=== PATIENT | male | born 1985 | race Caucasian/White ===

== ENCOUNTER 2017-12-21 15:19 | Outpatient (CLI) | payer OTHER | END 2017-12-21 15:20 | disposition home or self-care (01) | LOC: SC 15:19 | PROVIDERS: ATTEND Internal Medicine Pulmonary Disease | DX: G47.30 Sleep apnea, unspecified (principal); G47.10 Hypersomnia, unspecified; R06.83 Snoring; G47.8 Other sleep disorders | CPT/HCPCS: 99203; 99212 ==

== ENCOUNTER 2018-01-28 08:37 | Emergency (ER) | payer OTHER ==
[2018-01-28 09:05] LABS: BASOPHILS % (AUTO) 0.1 %; EOSINOPHILS % (AUTO) 0.1 %; HGB - HEMOGLOBIN 15.4 g/dL (14.0-18.0); LYMPHOCYTES # (AUTO) 0.3 10^3/uL (1.5-3.5); LYMPHOCYTES % (AUTO) 1.5 %; MEAN CORPUSCULAR HEMOGLOBIN 30.7 pg (27.0-31.0); MEAN CORPUSCULAR HGB CONC 34.7 g/dL (32.0-36.0); MEAN CORPUSCULAR VOLUME 88.5 fL (80.0-94.0); MEAN PLATELET VOLUME 9.6 fL (7.4-11.4); MONOCYTES # (AUTO) 0.4 10^3/uL (0.0-1.0); MONOCYTES % (AUTO) 2.1 %; NEUTROPHILS # (AUTO) 17.4 10^3/uL (1.5-6.6); NEUTROPHILS % (AUTO) 96.2 %; PLT - PLATELET COUNT 211 10^3/uL (130-450); RED BLOOD COUNT 5.02 10^6/uL (4.70-6.10); RED CELL DISTRIBUTION WIDTH 12.2 % (12.0-15.0); WHITE BLOOD COUNT 18.1 x10^3/uL (4.8-10.8)
[2018-01-28] MEDS ORDERED: SODIUM CHLORIDE 0.9% 2,000 ML IV ONE (09:13)
--- NOTE | 2018-01-28 09:13 | ED Physician Documentation ---
History of Present Illness - Stated complaint Stated Complaint: N/V/D AB PX - Chief complaint Chief Complaint: Abd Pain - Additonal information Additional information: hx from pt 32 m AD [place] to ED with NVD dehydration no urine for 12 hr periumbilical pain with same they think due to baby [place] they ate no travel no blood in vomit or stool Review of Systems Constitutional: denies: Fever, Chills Cardiac: denies: Chest pain / pressure Respiratory: denies: Dyspnea GI: reports: Abdominal Pain, Nausea, Vomiting, Diarrhea. denies: Hematemesis, Bloody / black stool : reports: Other (decreased output) Neurologic: reports: Generalized weakness Endocrine: denies: Easy bruising / bleeding Immunocompromised: denies: Immunocompromised PD PAST MEDICAL HISTORY - Past Surgical History Past Surgical History: No - Present Medications Home Medications: Ambulatory Orders Medication Instructions Recorded Confirmed Azithromycin [Zithromax] 500 mg PO DAILY #4 tablet 01/28/18 Promethazine [Phenergan] 25 mg PO Q6H PRN #10 tablet 01/28/18 - Allergies Allergies/Adverse Reactions: Allergies Allergy/AdvReac Type Severity Reaction Status Date / Time No Known Drug Allergies Allergy Verified 01/28/18 08:47 - Social History Does the pt smoke?: No Smoking Status: Never smoker Does the pt drink ETOH?: Yes Does the pt have substance abuse?: No - Immunizations Immunizations are current?: Yes PD ED PE NORMAL - Vitals Vital signs reviewed: Yes - Neck Neck: Supple, no meningeal sign - Cardiac Cardiac: RRR - Respiratory Respiratory: No respiratory distress, Clear bilaterally - Abdomen Abdomen: Other (soft , TTP mid abd s rebound gaurding or palp hernia, no focal RUQ RLQ pain) - Derm Derm: Normal color - Neuro Neuro: Alert and oriented X 3 Results - Vitals Vitals: Vital Signs - 24 hr 01/28/18 01/28/18 01/28/18 08:45 12:55 14:04 Temperature 37.4 C 38.6 C H 38.2 C H Heart Rate 91 114 H 100 Respiratory 18 22 16 Rate Blood Pressure 114/65 112/61 112/63 O2 Saturation 96 98 96 Oxygen O2 Source Room air - Labs Labs: Laboratory Tests 01/28/18 01/28/18 01/28/18 08:55 08:55 10:15 WBC 18.1 H RBC 5.02 Hgb 15.4 Hct 44.5 MCV 88.5 MCH 30.7 MCHC 34.7 RDW 12.2 Plt Count 211 MPV 9.6 Neut # (Auto) 17.4 H Lymph # (Auto) 0.3 L Jenkins # (Auto) 0.4 Eos # (Auto) 0.0 Baso # (Auto) 0.0 Absolute Nucleated RBC 0.00 Nucleated RBC % 0.0 Sodium 138 Potassium 3.9 Chloride 102 Carbon Dioxide 26 Anion Gap 10.0 BUN 20 Creatinine 0.8 Estimated GFR (MDRD) 114 Glucose 123 H Calcium 9.5 Total Bilirubin 1.6 H AST 24 ALT 23 Alkaline Phosphatase 66 Total Protein 8.2 Albumin 4.8 Globulin 3.4 Albumin/Globulin Ratio 1.4 Lipase 30 Urine Color YELLOW Urine Clarity CLEAR Urine pH 6.0 Ur Specific [place] 1.025 Urine Protein NEGATIVE Urine Glucose (UA) NEGATIVE Urine Ketones 40 H Urine Occult Blood NEGATIVE Urine Nitrite NEGATIVE Urine Bilirubin NEGATIVE Urine Urobilinogen 0.2 (NORMAL) Ur Leukocyte Esterase NEGATIVE Ur Microscopic Review NOT INDICATED Urine Culture Comments NOT INDICATED - Rads (name of study) abd sono Radiology: See rad report (GB sono) PD MEDICAL DECISION MAKING - ED course ED course: bili elev so got ruq sono which was neg he got 2 L of IVF, felt better, urinated, no further diarrhea, sent home with cup to collect if diarrhea returns but when nurse went to do dc vitals she found the pt was febrile and tachy so cancelled dc, ordered another L NS, tylenol, will continue to try for stool cx able to give stool sample despite tylenol and 3rd L of IVF HR 100 temp 38.2 given severtiy of sx and occuring after eating spinach concern for food poisoning now that have stool to cx and since it is not bloody so unlikely to be invasive E Coli, will start ab - zmax 500 PO QD X 3 days - will necessitate changing zofran to phenergan pt feeling much better - no more vomiting, tolerated PO, no abd pain, only one small diarrhea - Sepsis Event Vital Signs: Vital Signs - 24 hr 01/28/18 01/28/18 01/28/18 08:45 12:55 14:04 Temperature 37.4 C 38.6 C H 38.2 C H Heart Rate 91 114 H 100 Respiratory 18 22 16 Rate Blood Pressure 114/65 112/61 112/63 O2 Saturation 96 98 96 Oxygen O2 Source Room air Departure - Departure Disposition: 01 Home, Self Care Clinical Impression: Dehydration Vomiting Qualifiers: Vomiting type: unspecified Vomiting Intractability: non-intractable Nausea presence: with nausea Qualified Code(s): R11.2 - Nausea with vomiting, unspecified Diarrhea Qualifiers: Diarrhea type: unspecified type Qualified Code(s): R19.7 - Diarrhea, unspecified Condition: Good Instructions: ED Dehydration, ED Diet Vomiting Diarrhea, ED Gastroenteritis Vs Food Poison Follow-Up: [facility] [Provider Group] (tomorrow for a recheck) Prescriptions: Azithromycin [Zithromax] 500 mg PO DAILY #4 tablet Promethazine [Phenergan] 25 mg PO Q6H PRN #10 tablet PRN Reason: vomiting Comments: The ultrasound was fine - no gallstones Your labs were OK You got 2 L of IV fluids and are feeling better and urinating again So I think it is safe for you to go home You were not able to give a stool sample so I do not know if this was food poisoning or a stomach virus. As long as you are better it doesn't matter too much But if the symptoms come back, please collect a stool sample for your doctor at [facility] to send for a culture to determine if you need antibiotics I wrote a prescription for zofran which you can take as needed for vomiting Rest and drink plenty of fluids Return if worse Forms: Activity restrictions
[2018-01-28 09:18] LABS: ALBUMIN 4.8 g/dL (3.2-5.5); ALBUMIN/GLOBULIN RATIO 1.4 (1.0-2.2); BILIRUBIN,TOTAL 1.6 mg/dL (0.2-1.0); CREATININE 0.8 mg/dL (0.6-1.2); TOTAL PROTEIN 8.2 g/dL (6.7-8.2)
[2018-01-28 09:37] LABS: CALCIUM 9.5 mg/dL (8.5-10.3)
[2018-01-28 10:52] LABS: BILIRUBIN,URINE NEGATIVE (NEGATIVE); GLUCOSE, URINE (UA) NEGATIVE (NEGATIVE); KETONES,URINE (UA) 40 mg/dL (NEGATIVE); LEUKOCYTE ESTERASE, URINE NEGATIVE (NEGATIVE); NITRITE,URINE NEGATIVE (NEGATIVE); OCCULT BLOOD,URINE NEGATIVE (NEGATIVE); PROTEIN,URINE NEGATIVE (NEGATIVE); UROBILINOGEN,URINE 0.2 (NORMAL) E.U./dL (NORMAL)
[2018-01-28 10:56] LABS: CLARITY,URINE CLEAR (CLEAR)
--- NOTE | 2018-01-28 11:19 | Ultrasound Report ---
Procedure Date: 01/28/2018 Accession Number: [id number] / [id number] Procedure: US - Abdomen Limited CPT Code: FULL RESULT: EXAM: Abdomen Limited DATE: 01/28/2018 10:12 AM CLINICAL HISTORY: abd pain elev bili COMPARISON: None. TECHNIQUE: Real-time scanning was performed with static images obtained. FINDINGS: Liver: Normal in size and echotexture. At least 16 cm. Main portal vein flow: Hepatopetal. Gallbladder: Normal. No stones, wall thickening, or sonographic Main's sign. Biliary System: Common bile duct measures 2 mm. No intrahepatic or extrahepatic ductal dilatation. Pancreas: Visualized portion is unremarkable. Kidneys: Right: 10.8 cm longitudinally. Normal. No contour-deforming mass, stones, or hydronephrosis. IVC is unremarkable. IMPRESSION: No evidence of cholecystitis. [facility]
[2018-01-28] MEDS ORDERED: SODIUM CHLORIDE 0.9% 1,000 ML IV ONE (13:02)
[2018-01-28] MEDS ORDERED: ACETAMINOPHEN 325 MG TABLET PO STA (13:02)
[2018-01-28 14:06] VITALS: BP 112/63
[2018-01-28] MEDS ORDERED: AZITHROMYCIN 250 MG TABLET PO STA (14:45)
== END 2018-01-28 15:05 | disposition home or self-care (01) ==
LOC: ED 08:37
DX: E86.0 Dehydration (principal); R11.2 Nausea with vomiting, unspecified; R19.7 Diarrhea, unspecified
CPT/HCPCS: 36415; 76705; 80053; 81003; 83690; 85025; 87045; 87046; 96360; 96361; 99283; 99284; A9270; 81001; 87086

== ENCOUNTER 2018-03-04 06:55 | Outpatient (CLI) | payer OTHER | END 2018-03-04 06:56 | disposition home or self-care (01) | LOC: SC 06:55 | PROVIDERS: ATTEND Internal Medicine Pulmonary Disease | DX: G47.30 Sleep apnea, unspecified (principal) | CPT/HCPCS: 95810 ==

== ENCOUNTER 2018-04-07 10:30 | Outpatient (CLI) | payer OTHER | END 2018-04-07 10:31 | disposition home or self-care (01) | LOC: SC 10:30 | PROVIDERS: ATTEND Nurse Practitioner Family | DX: R06.83 Snoring (principal); G47.26 Circadian rhythm sleep disorder, shift work type | CPT/HCPCS: 99212; 99215 ==

== ENCOUNTER 2018-06-07 15:16 | Outpatient (CLI) | payer OTHER | END 2018-06-07 15:17 | disposition home or self-care (01) | LOC: SC 15:16 | PROVIDERS: ATTEND Nurse Practitioner Family | DX: R06.81 Apnea, not elsewhere classified (principal); R53.83 Other fatigue; G47.10 Hypersomnia, unspecified; R06.83 Snoring | CPT/HCPCS: 99212; 99214 ==

== ENCOUNTER 2018-07-02 20:33 | Outpatient (CLI) | payer OTHER | END 2018-07-02 20:34 | disposition home or self-care (01) | LOC: SC 20:33 | PROVIDERS: ATTEND Internal Medicine Pulmonary Disease | DX: G47.33 Obstructive sleep apnea (adult) (pediatric) (principal) | CPT/HCPCS: 95810 ==

== ENCOUNTER 2018-07-13 10:46 | Outpatient (CLI) | payer OTHER | END 2018-07-13 10:47 | disposition home or self-care (01) | LOC: SC 10:46 | PROVIDERS: ATTEND Nurse Practitioner Family | DX: G47.33 Obstructive sleep apnea (adult) (pediatric) (principal) | CPT/HCPCS: 99212; 99214 ==